=== PATIENT | female | born 1980 | race Caucasian/White ===

== ENCOUNTER 2021-10-03 15:20 | Inpatient (IN) | payer MEDICAID, OTHER ==
[~2021-10-03] VITALS: Ht 162.6 cm; Wt 60.1 kg
[2021-10-03] MEDS ORDERED: NICOTINE 7 MG/24 HOUR PATCH TD ONE (15:45)
[2021-10-03] MEDS ORDERED: LORazepam 1 MG TABLET PO ONE (15:45)
[2021-10-03 16:10] LABS: BASOPHILS % (AUTO) 0.2 % (0.0-2.0); EOSINOPHILS % (AUTO) 7.6 % (1.0-6.0); HEMATOCRIT 39.8 % (36-46); LYMPHOCYTES % (AUTO) 15.8 % (22.0-44.0); MEAN CORPUSCULAR HEMOGLOBIN 31.5 pg (26.0-34.0); MEAN CORPUSCULAR HGB CONC 32.8 G/dL (31.0-37.0); MEAN CORPUSCULAR VOLUME 96 fL (80-100); MONOCYTES # (AUTO) 0.7 K/uL (0.1-1.0); NEUTROPHILS % (AUTO) 65.4 % (40.0-70.0); PLATELET COUNT (AUTO) 402 K/uL (150-450); RED BLOOD CELL COUNT(AUTO) 4.14 MIL/uL (4.00-5.20); RED CELL DISTRIBUTION WIDTH 15.1 % (11.5-14.5)
[2021-10-03 16:22] LABS: ANION GAP 8 mmol/L (8-16); CALCIUM, TOTAL 9.7 mg/dL (8.8-10.5); CARBON DIOXIDE 30 mmol/L (22-29); CHLORIDE 103 mmol/L (98-107); CREATININE 0.68 mg/dL (0.60-1.30); GLOMERULAR FILTR. RATE CALC > 60 mL/min (>60); GLUCOSE,RANDOM 91 mg/dL (70-110); POTASSIUM 4.3 mmol/L (3.5-5.1); SODIUM SERUM 141 mmol/L (136-145); UREA NITROGEN, BLOOD 14 mg/dL (7-18)
[2021-10-03 16:34] LABS: ALANINE AMINOTRANSFERASE 29 U/L (12-78); ALBUMIN 3.6 g/dL (3.4-5.0); ALKALINE PHOSPHATASE 123 U/L (46-116); ASPARTATE AMINOTRANSFERASE 26 U/L (15-37); BILIRUBIN,TOTAL 0.3 mg/dL (0.1-1.0); HCG,QUANTITATIVE < 1 mIU/mL (0-6); TOTAL PROTEIN, SERUM 7.6 g/dL (6.4-8.2)
[2021-10-03 16:57] LABS: COVID AG,FIA SOURCE NASOPHARYNGEAL
[2021-10-03 17:16] LABS: PLATELET MORPHOLOGY COMMENT LARGE PLTS PRESENT
[2021-10-03 22:30] LABS: AMPHET/METH SCREEN,URINE NEGATIVE (NEGATIVE); BARBITURATE SCREEN, URINE NEGATIVE (NEGATIVE); BENZODIAZEPINES SCREEN,URINE POSITIVE (NEGATIVE); CANNABINOID SCREEN,URINE POSITIVE (NEGATIVE); COCAINE SCREEN,URINE NEGATIVE (NEGATIVE); METHADONE SCREEN, URINE NEGATIVE (NEGATIVE); OPIATE SCREEN,URINE NEGATIVE (NEGATIVE); PHENCYCLIDINE SCREEN,URINE NEGATIVE (NEGATIVE)
[2021-10-04] MEDS: LORazepam 2 MG TABLET PO PRN ×2 (02:17→16:31)
[2021-10-04 04:26] VITALS: BP 125/85
[2021-10-04 09:17] VITALS: BP 141/80
[2021-10-04] MEDS: ESCITALOPRAM OXALATE 10 MG TABLET PO SCH (13:53)
[2021-10-04 16:31] VITALS: BP 132/93
[2021-10-04] MEDS: HALOPERIDOL 5 MG TABLET PO PRN (16:31)
[2021-10-04 16:44] VITALS: BP 132/93
[2021-10-04] MEDS: NICOTINE 7 MG/24 HOUR PATCH TD SCH (20:28)
[2021-10-05] MEDS: ESCITALOPRAM OXALATE 10 MG TABLET PO SCH (08:17)
[2021-10-05] MEDS: NICOTINE 7 MG/24 HOUR PATCH TD SCH (08:18)
[2021-10-05 09:52] VITALS: BP 106/68
[2021-10-05] MEDS: LORazepam 2 MG TABLET PO PRN ×2 (14:40→20:51)
[2021-10-05] MEDS: HALOPERIDOL 5 MG TABLET PO PRN ×2 (14:45→20:51)
[2021-10-05 16:24] VITALS: BP_SYST 100; BP_SYST 103; BP_DIAS 67; BP_DIAS 77
[2021-10-05 20:51] VITALS: BP 115/71
[2021-10-05 23:30] VITALS: BP 108/79
[2021-10-05] MEDS: ZOLPIDEM TARTRATE 10 MG TABLET PO PRN (23:57)
[2021-10-06] MEDS: ESCITALOPRAM OXALATE 10 MG TABLET PO SCH (08:40)
[2021-10-06] MEDS: NICOTINE 7 MG/24 HOUR PATCH TD SCH (08:41)
[2021-10-06] MEDS: LORazepam 2 MG TABLET PO PRN ×2 (08:45→17:00)
[2021-10-06 09:06] VITALS: BP 113/77
[2021-10-06 16:00] VITALS: BP 118/85
[2021-10-06] MEDS: MUPIROCIN CALCIUM 2% 22 GM OINTMENT TP SCH (16:04)
[2021-10-06] MEDS: ZOLPIDEM TARTRATE 10 MG TABLET PO PRN (20:28)
[2021-10-07 01:00] VITALS: BP 118/84
[2021-10-07] MEDS: LORazepam 2 MG TABLET PO PRN ×3 (01:04→17:56)
[2021-10-07] MEDS: ESCITALOPRAM OXALATE 10 MG TABLET PO SCH (08:08)
[2021-10-07] MEDS: MUPIROCIN CALCIUM 2% 22 GM OINTMENT TP SCH ×2 (08:09→16:01)
[2021-10-07] MEDS: NICOTINE 7 MG/24 HOUR PATCH TD SCH (08:09)
[2021-10-07 08:55] VITALS: BP 127/94
[2021-10-07 16:00] VITALS: BP 109/72
[2021-10-07] MEDS: ZOLPIDEM TARTRATE 10 MG TABLET PO PRN (23:49)
[2021-10-08 02:52] VITALS: BP 120/88
[2021-10-08] MEDS: LORazepam 2 MG TABLET PO PRN ×2 (02:55→16:06)
[2021-10-08 08:00] VITALS: BP 106/67
[2021-10-08] MEDS: MUPIROCIN CALCIUM 2% 22 GM OINTMENT TP SCH ×2 (09:17→16:06)
[2021-10-08] MEDS: NICOTINE 7 MG/24 HOUR PATCH TD SCH (09:17)
[2021-10-08] MEDS: ESCITALOPRAM OXALATE 10 MG TABLET PO SCH (09:17)
[2021-10-08] MEDS: ACETAMINOPHEN 325 MG TABLET PO PRN ×2 (14:01→22:07)
[2021-10-08 16:47] VITALS: BP 115/73
[2021-10-08] MEDS: ZOLPIDEM TARTRATE 10 MG TABLET PO PRN (20:52)
[2021-10-09] MEDS: LORazepam 2 MG TABLET PO PRN ×4 (00:33→23:41)
[2021-10-09 00:36] VITALS: BP 113/75
[2021-10-09] MEDS: NICOTINE 7 MG/24 HOUR PATCH TD SCH (08:26)
[2021-10-09] MEDS: MUPIROCIN CALCIUM 2% 22 GM OINTMENT TP SCH ×2 (08:26→16:11)
[2021-10-09] MEDS: ESCITALOPRAM OXALATE 10 MG TABLET PO SCH (08:26)
[2021-10-09 08:30] VITALS: BP 117/82
[2021-10-09] MEDS: ACETAMINOPHEN 325 MG TABLET PO PRN ×2 (08:30→17:51)
[2021-10-09 08:43] VITALS: BP 117/82
[2021-10-09 10:43] LABS: COVID AG,FIA SOURCE NASOPHARYNGEAL
[2021-10-09] MEDS: BusPIRone HCL 5 MG TABLET PO SCH ×2 (12:50→16:11)
[2021-10-09 16:42] VITALS: BP 112/86
[2021-10-09] MEDS: TraZODone HCL 50 MG TABLET PO PRN (21:19)
[2021-10-10 08:00] VITALS: BP 125/94
[2021-10-10] MEDS: BusPIRone HCL 5 MG TABLET PO SCH ×3 (08:02→16:37)
[2021-10-10] MEDS: ESCITALOPRAM OXALATE 10 MG TABLET PO SCH (08:02)
[2021-10-10] MEDS: ACETAMINOPHEN 325 MG TABLET PO PRN ×2 (08:03→19:17)
[2021-10-10] MEDS: NICOTINE 7 MG/24 HOUR PATCH TD SCH (08:03)
[2021-10-10] MEDS: MUPIROCIN CALCIUM 2% 22 GM OINTMENT TP SCH ×2 (08:15→16:37)
[2021-10-10] MEDS: IBUPROFEN 600 MG TABLET PO PRN (13:23)
[2021-10-10 16:19] VITALS: BP 117/73
[2021-10-10 19:17] VITALS: BP 124/71
[2021-10-10 20:37] VITALS: BP 120/79
[2021-10-10] MEDS: LORazepam 2 MG TABLET PO PRN (20:37)
[2021-10-10] MEDS: TraZODone HCL 50 MG TABLET PO PRN (23:08)
[2021-10-11] MEDS: LORazepam 2 MG TABLET PO PRN ×2 (00:59→17:38)
[2021-10-11 08:00] VITALS: BP 107/73
[2021-10-11] MEDS: ESCITALOPRAM OXALATE 10 MG TABLET PO SCH (08:41)
[2021-10-11] MEDS: BusPIRone HCL 5 MG TABLET PO SCH ×3 (08:42→17:00)
[2021-10-11] MEDS: MUPIROCIN CALCIUM 2% 22 GM OINTMENT TP SCH (08:42)
[2021-10-11] MEDS: NICOTINE 7 MG/24 HOUR PATCH TD SCH (09:00)
[2021-10-11] MEDS: IBUPROFEN 600 MG TABLET PO PRN ×2 (12:15→18:29)
[2021-10-11 16:12] VITALS: BP 114/79
[2021-10-11] MEDS: HALOPERIDOL 5 MG TABLET PO PRN (17:38)
[2021-10-11 18:29] VITALS: BP 111/82
[2021-10-11 21:11] VITALS: BP 101/65
[2021-10-11] MEDS: ACETAMINOPHEN 325 MG TABLET PO PRN (21:11)
[2021-10-12 04:18] VITALS: BP 96/65
[2021-10-12] MEDS: LORazepam 2 MG TABLET PO PRN ×2 (04:20→21:44)
[2021-10-12] MEDS: NICOTINE 7 MG/24 HOUR PATCH TD SCH (08:28)
[2021-10-12] MEDS: MULTIVITAMINS WITH MINERALS, THERAPEUTIC TABLET PO SCH (08:28)
[2021-10-12] MEDS: BusPIRone HCL 5 MG TABLET PO SCH ×3 (08:28→16:03)
[2021-10-12] MEDS: ESCITALOPRAM OXALATE 10 MG TABLET PO SCH (08:28)
[2021-10-12 12:30] VITALS: BP 102/64
[2021-10-12] MEDS: ACETAMINOPHEN 325 MG TABLET PO PRN (12:30)
[2021-10-12 16:55] VITALS: BP 121/78
[2021-10-12 17:58] VITALS: BP 125/75
[2021-10-12] MEDS: IBUPROFEN 600 MG TABLET PO PRN (17:58)
[2021-10-12 18:58] VITALS: BP 120/72
[2021-10-12] MEDS: TraZODone HCL 50 MG TABLET PO PRN (23:12)
[2021-10-13 08:00] VITALS: BP 100/68
[2021-10-13] MEDS: MULTIVITAMINS WITH MINERALS, THERAPEUTIC TABLET PO SCH (08:46)
[2021-10-13] MEDS: ESCITALOPRAM OXALATE 10 MG TABLET PO SCH (08:46)
[2021-10-13] MEDS: BusPIRone HCL 5 MG TABLET PO SCH ×3 (08:46→16:19)
[2021-10-13] MEDS: NICOTINE 7 MG/24 HOUR PATCH TD SCH (08:47)
[2021-10-13 12:25] VITALS: BP 126/68
[2021-10-13] MEDS: LORazepam 2 MG TABLET PO PRN ×2 (12:25→20:17)
[2021-10-13] MEDS: IBUPROFEN 600 MG TABLET PO PRN (12:25)
[2021-10-13 17:05] VITALS: BP 108/66
[2021-10-13] MEDS: ACETAMINOPHEN 325 MG TABLET PO PRN (17:53)
[2021-10-13 17:55] VITALS: BP 122/72
[2021-10-13] MEDS: TraZODone HCL 50 MG TABLET PO PRN (22:38)
[2021-10-14] MEDS: LORazepam 2 MG TABLET PO PRN ×3 (05:18→19:58)
[2021-10-14] MEDS: BusPIRone HCL 5 MG TABLET PO SCH ×3 (09:00→16:20)
[2021-10-14] MEDS: ESCITALOPRAM OXALATE 10 MG TABLET PO SCH (09:00)
[2021-10-14] MEDS: MULTIVITAMINS WITH MINERALS, THERAPEUTIC TABLET PO SCH (09:00)
[2021-10-14] MEDS: NICOTINE 7 MG/24 HOUR PATCH TD SCH (09:01)
[2021-10-14 09:49] VITALS: BP 104/63
[2021-10-14 09:56] VITALS: BP 104/63
[2021-10-14] MEDS: IBUPROFEN 600 MG TABLET PO PRN ×2 (09:56→18:08)
[2021-10-14] MEDS: ACETAMINOPHEN 325 MG TABLET PO PRN (14:58)
[2021-10-14 16:41] VITALS: BP 99/71
[2021-10-14 18:05] VITALS: BP 100/69
[2021-10-14] MEDS ORDERED: DiphenhydrAMINE HCL 25 MG CAPSULE PO ONE (19:15)
[2021-10-14 19:55] VITALS: BP 107/64
[2021-10-14] MEDS: TraZODone HCL 50 MG TABLET PO PRN (22:59)
[2021-10-15 08:23] VITALS: BP 104/70
[2021-10-15] MEDS: MULTIVITAMINS WITH MINERALS, THERAPEUTIC TABLET PO SCH (09:46)
[2021-10-15] MEDS: NICOTINE 7 MG/24 HOUR PATCH TD SCH (09:46)
[2021-10-15] MEDS: BusPIRone HCL 5 MG TABLET PO SCH ×3 (09:46→16:02)
[2021-10-15] MEDS: ESCITALOPRAM OXALATE 10 MG TABLET PO SCH (09:46)
[2021-10-15] MEDS: ACETAMINOPHEN 325 MG TABLET PO PRN (09:49)
[2021-10-15] MEDS: LORazepam 2 MG TABLET PO PRN ×2 (12:46→21:03)
[2021-10-15] MEDS: IBUPROFEN 600 MG TABLET PO PRN ×2 (12:51→19:21)
[2021-10-15 16:23] VITALS: BP 120/69
[2021-10-15 19:21] VITALS: BP 123/72
[2021-10-15 20:21] VITALS: BP 120/71
[2021-10-15] MEDS: TraZODone HCL 50 MG TABLET PO PRN (23:10)
[2021-10-16 08:50] VITALS: BP 114/81
[2021-10-16] MEDS: ESCITALOPRAM OXALATE 10 MG TABLET PO SCH (08:55)
[2021-10-16] MEDS: NICOTINE 7 MG/24 HOUR PATCH TD SCH (08:56)
[2021-10-16] MEDS: MULTIVITAMINS WITH MINERALS, THERAPEUTIC TABLET PO SCH (08:56)
[2021-10-16] MEDS: IBUPROFEN 600 MG TABLET PO PRN (08:56)
[2021-10-16] MEDS: BusPIRone HCL 5 MG TABLET PO SCH ×2 (08:56→12:37)
[2021-10-16] MEDS: ACETAMINOPHEN 325 MG TABLET PO PRN (12:35)
[2021-10-16 15:22] LABS: COVID AG,FIA SOURCE NASAL SWAB
[2021-10-16] MEDS: LORazepam 2 MG TABLET PO PRN (15:52)
[2021-10-16] MEDS ORDERED: BUSP5TAB20 PO (17:09)
[2021-10-16] MEDS ORDERED: ESCI10 PO (17:09)
== END 2021-10-16 16:28 | disposition home or self-care (01) | DRG 751 ==
LOC: EMS 16:43 → 3EI 10-04 01:40
PROVIDERS: ADMIT Psychiatry & Neurology Psychiatry; ATTEND Psychiatry & Neurology Psychiatry
DX: F33.2 Major depressive disorder, recurrent severe without psychotic features (principal); R45.851 Suicidal ideations; F10.99 Alcohol use, unspecified with unspecified alcohol-induced disorder; M32.9 Systemic lupus erythematosus, unspecified; F06.4 Anxiety disorder due to known physiological condition; F41.0 Panic disorder [episodic paroxysmal anxiety]; F17.210 Nicotine dependence, cigarettes, uncomplicated; M19.90 Unspecified osteoarthritis, unspecified site; F12.99 Cannabis use, unspecified with unspecified cannabis-induced disorder; Z20.822 Contact with and (suspected) exposure to COVID-19; Y90.9 Presence of alcohol in blood, level not specified; F15.90 Other stimulant use, unspecified, uncomplicated; Z59.00 Homelessness unspecified; Z79.899 Other long term (current) drug therapy; Z90.81 Acquired absence of spleen; Z88.1 Allergy status to other antibiotic agents; Z90.49 Acquired absence of other specified parts of digestive tract; Z71.6 Tobacco abuse counseling; Z71.41 Alcohol abuse counseling and surveillance of alcoholic
CPT/HCPCS: 80053; 84484; 84702; 85025; 87081; 93005; 99285; G0480